=== PATIENT | female | born 1925 | race Caucasian/White ===

== ENCOUNTER 2016-10-12 22:09 | Emergency (ER) | payer OTHER ==
[2016-10-12 22:30] VITALS: BP 162/96; PULSE 90; TEMP 97.5; BMI 24.9
--- NOTE | 2016-10-12 22:37 | PDOC ---
History of Present Illness - General History Source: Patient, Family (Son) Exam Limitations: No Limitations - History of Present Illness Initial Comments: 10/12/16 22:54 The patient is an 89 year old female, with a significant past medical history of hyperlipidemia, who presents to the emergency department via EMS with nausea and vomiting since approximately 9PM this evening. The patient reports 4 episodes of nonbloody vomiting, most recently upon arrival to the ED. The patient does report vague cold like symptoms earlier this week which have since resolved with the exception of occasional cold sweats. The patient denies fever , headache, cough, chest pain or shortness of breath. The patient denies any abdominal pain. The patient reports that she did receive a flu shot this year. The patient reports that she takes one baby aspirin every other day. The patient denies any recent sick contacts. The patients son is at the bedside. Allergies: None reported. Past Surgical History: Cataracts. Social History: Former smoker (quit 35 years ago). Reports one glass of wine every night. Denies drug use. PCP: Dr. Bucky Oropeza <Gabrielle Diaz - Last Filed: 10/13/16 01:34> <Josef Nick - Last Filed: 10/13/16 01:40> - General Chief Complaint: Nausea/Vomiting Stated Complaint: Nausea/Vomiting Time Seen by Provider: 10/12/16 22:28 Past History <Gabrielle Diaz - Last Filed: 10/13/16 01:34> - Psycho/Social/Smoking Cessation Hx Suicidal Ideation: No Smoking History: Never smoked <Josef Nick - Last Filed: 10/13/16 01:40> - Past Medical History Allergies/Adverse Reactions: Allergies Allergy/AdvReac Type Severity Reaction Status Date / Time No Known Allergies Allergy Verified 10/12/16 23:02 Home Medications: Ambulatory Orders Ondansetron [Zofran Odt -] 4 mg SL TID #21 od.tablet 10/13/16 Review of Systems - Review of Systems Able to Perform ROS?: Yes Comments:: 10/12/16 22:41 CONSTITUTIONAL: +Cold sweats. No fever, no fatigue EYES: No visual changes ENT: No ear pain, no sore throat CARDIOVASCULAR: No chest pain, no palpitations RESPIRATORY: No cough, no SOB GI: +Nausea, vomiting. No abdominal pain, no constipation, no diarrhea GENITOURINARY: No dysuria, no frequency, no hematuria MUSKULOSKELETAL: No back pain, no joint pain, no myalgias SKIN: No rash NEURO: No headache <Gabrielle Diaz - Last Filed: 10/13/16 01:34> *Physical Exam - Vital Signs Last Vital Signs Temp Pulse Resp BP Pulse Ox 97.5 F L 90 20 162/96 96 10/12/16 22:29 10/12/16 22:29 10/12/16 22:29 10/12/16 22:29 10/12/16 22:29 - Physical Exam Comments: 10/12/16 22:51 CONSTITUTIONAL: Awake, alert, fully oriented; in no apparent distress. HEAD: Normocephalic; atraumatic. EYES: PERRL; EOM intact. No nystagmus. ENMT: External appears normal; normal oropharynx. NECK: Supple; non-tender; no cervical lymphadenopathy. CARD: Normal S1, S2; no murmurs, rubs, or gallops. RESP: Normal chest excursion with respiration; breath sounds clear and equal bilaterally; no wheezes, rhonchi, or rales. ABD: Soft, non-distended; non-tender; no palpable organomegaly, no palpable hernias. EXT: Normal ROM in all four extremities; non-tender to palpation; distal pulses intact. SKIN: Warm, dry, no rash. NEURO: No focal neurological deficiencies. <Gabrielle Diaz - Last Filed: 10/13/16 01:34> - Vital Signs Last Vital Signs Temp Pulse Resp BP Pulse Ox 97.5 F L 90 20 162/96 96 10/12/16 22:29 10/12/16 22:29 10/12/16 22:29 10/12/16 22:29 10/12/16 22:29 <Josef Nick - Last Filed: 10/13/16 01:40> Heart Score/ECG Review #1 ECG reviewed & interpreted by me at: 23:40 (Vent Rate: 83 bpm. Normal sinus rhythm. Low voltage QRS. ) <Gabrielle Diaz - Last Filed: 10/13/16 01:34> ED Treatment Course - LABORATORY CBC & Chemistry Diagram: 10/12/16 22:51 10/12/16 22:51 <Gabrielle Diaz - Last Filed: 10/13/16 01:34> - LABORATORY CBC & Chemistry Diagram: 10/12/16 22:51 10/12/16 22:51 <Josef Nick - Last Filed: 10/13/16 01:40> Medical Decision Making - Medical Decision Making 10/13/16 01:36 Patient is an 89-year-old female with history of hyperlipidemia who presents with persistent nausea and multiple episodes of nonbloody nonbilious vomiting precipitated by head movements. In the ER, patient is awake and alert, well- appearing, with no focal neurological deficits no evidence of cerebellar dysfunction. Patient is able to ambulate without difficulty. EKG shows no evidence of acute ischemia. Patient's vital signs and noted to be normal and stable. Patient received IV fluids, H2 blockers and antiemetic therapy with significant improvement in level of her nausea. At this time, patient is able tolerate by mouth solids and liquids. CBC/CMP within normal limit. Urinalysis reveals trace leukocyte esterase only. I do not believe patient's symptoms are consistent with ACS or an occult infection. Will discharge with sublingual Zofran with prompt PMD follow-up. <Josef Nick - Last Filed: 10/13/16 01:40> *DC/Admit/Observation/Transfer - Attestations Scribe Attestion: 10/12/16 22:40 Documentation prepared by Gabrielle Diaz, acting as medical coding auditor for Josef Nick MD. <Gabrielle Diaz - Last Filed: 10/13/16 01:34> - Attestations Physician Attestion: 10/13/16 01:36 The documentation was prepared by the scribe under my direct supervision. I have reviewed the documentation which correctly represents the findings, medical decision-making and critical action taken by me. <Josef Nick - Last Filed: 10/13/16 01:40> Diagnosis at time of Disposition: Nausea and vomiting Qualifiers: Vomiting type: unspecified Vomiting Intractability: non-intractable Qualified Code(s): R11.2 - Nausea with vomiting, unspecified - Discharge Dispostion Disposition: HOME Condition at time of disposition: Stable - Referrals Referrals: Bucky Oropeza MD [Primary Care Provider] - - Patient Instructions Printed Discharge Instructions: DI for Nausea -- Adult, DI for Vomiting -- Adult
[2016-10-12] MEDS ORDERED: SODIUM CHLORIDE 500 ML IV STA (22:49)
[2016-10-12] MEDS ORDERED: ONDANSETRON 4 MG/2 ML VIAL IVPUSH ONE (22:49)
[2016-10-12] MEDS ORDERED: FAMOTIDINE 20 MG/50 ML IVPB 50 ML IVPB ONE (22:49)
[2016-10-12 23:02] LABS: BASOPHIL 0.6 % (0-2.0); EOSINOPHIL 1.1 % (0-4.5); MCH 29.7 pg (25.7-33.7); MCHC 33.5 g/dl (32.0-36.0); MEAN CELL VOLUME 88.8 fl (80-96); MEAN PLT VOLUME 8.7 fl (7.5-11.1); NEUTROPHILS 74.5 % (42.8-82.8); PLATELET COUNT 210 K/MM3 (134-434); RDW 14.4 % (11.6-15.6); WHITE BLOOD COUNT 10.6 K/mm3 (4.0-10.0)
[2016-10-12 23:30] LABS: ALBUMIN 4.1 g/dl (3.4-5.0); ANION GAP 13 (8-16); BILIRUBIN,TOTAL 0.3 mg/dL (0.2-1.0); CALCIUM 9.4 mg/dL (8.5-10.1); CO2 23 mmol/L (21-32); CREATININE 0.9 mg/dL (0.55-1.02); GLUCOSE,RANDOM 134 mg/dL (74-106); SGOT/AST 20 U/L (15-37); SGPT/ALT 32 U/L (12-78); TOT PROT 7.6 g/dl (6.4-8.2)
[2016-10-12 23:33] LABS: ALK PHOS 94 U/L (45-117); TROPONIN I < 0.02 ng/ml (0.00-0.05)
[2016-10-13] MEDS ORDERED: SODIUM CHLORIDE 500 ML IV STA (00:56)
[2016-10-13 01:10] LABS: URINE APPEARANCE CLEAR; URINE BILIRUBIN NEGATIVE (NEGATIVE); URINE BLOOD NEGATIVE (NEGATIVE); URINE COLOR YELLOW; URINE GLUCOSE (UA) NEGATIVE (NEGATIVE); URINE KETONE NEGATIVE (NEGATIVE); URINE NITRITE NEGATIVE (NEGATIVE); URINE UROBILINOGEN NEGATIVE E.U./dl (0.2-1.0)
[2016-10-13 01:20] LABS: URINE LEUK ESTERASE TRACE (NEGATIVE); URINE PROTEIN 1+ (NEGATIVE)
[2016-10-13 01:30] LABS: URINE MUCUS RARE; URINE RBC <1 /hpf (0-3); URINE WBC 2 /hpf (3-5)
--- NOTE | 2016-10-13 09:02 | EKG ---
Test Reason : Blood Pressure : / mmHG Vent. Rate : 083 BPM Atrial Rate : 083 BPM P-R Int : 156 ms QRS Dur : 070 ms QT Int : 388 ms P-R-T Axes : -13 -12 -05 degrees QTc Int : 455 ms POOR DATA QUALITY, INTERPRETATION MAY BE ADVERSELY AFFECTED NORMAL SINUS RHYTHM CANNOT RULE OUT CANNOT RULE OUT INFERIOR INFARCT ABNORMAL ECG NO PREVIOUS ECGS AVAILABLE Confirmed by MOO CARBAJAL, GOLDIE ([id number]) on 10/13/2016 9:02:44 AM Referred By: Confirmed By:GOLDIE CORTÉS MD
== END 2016-10-13 02:07 | disposition home or self-care (01) ==
LOC: JER 22:09
DX: R11.2 Nausea with vomiting, unspecified (principal); E78.5 Hyperlipidemia, unspecified
CPT/HCPCS: 36415; 71010-TC; 80053; 81003; 81015; 82550; 83690; 84484; 85025; 87086; 93005; 93010; 99283-25